=== PATIENT | female | born 1990 | race Caucasian/White ===

== ENCOUNTER 2021-11-08 04:44 | Day surgery (SDC) | payer OTHER ==
[2021-11-04 10:36] VITALS: BMI 28.3
[2021-11-08] MEDS ORDERED: BUPIVACAINE HCL/PF 0.5% (5MG/ML) 10 ML VIAL ONE (13:53)
[2021-11-08] MEDS ORDERED: ROCURONIUM BROMIDE 50 MG/5 ML SYRINGE ONE (14:07)
[2021-11-08] MEDS ORDERED: DEXAMETHASONE SOD PHOSPHATE 4 MG/1 ML VIAL ONE (14:07)
[2021-11-08] MEDS ORDERED: MIDAZOLAM HCL 2 MG/2 ML SINGLE DOSE VIAL ONE (14:07)
[2021-11-08] MEDS ORDERED: PROPOFOL 20 ML ONE (14:07)
[2021-11-08] MEDS ORDERED: LIDOCAINE HCL/PF 2% SDV 5ML VIAL ONE (14:07)
[2021-11-08] MEDS ORDERED: BUPIVACAINE HCL/PF 0.5% (5MG/ML) 10 ML VIAL IJ ONE ×2 (14:31)
[2021-11-08] MEDS ORDERED: KETOROLAC TROMETHAMINE 30 MG/1 ML VIAL ONE (15:00)
[2021-11-08] MEDS ORDERED: GLYCOPYRROLATE 0.2 MG/1 ML VIAL ONE (15:00)
[2021-11-08] MEDS ORDERED: NEOSTIGMINE METHYLSULFATE 0.5 MG/ML - 10 ML MDV ONE (15:00)
[2021-11-08] MEDS ORDERED: ONDANSETRON 4 MG/2 ML VIAL IVPUSH PRN (15:50)
[2021-11-08] MEDS ORDERED: oxyCODONE HCL 5 MG TABLET PO PRN ×2 (15:50)
[2021-11-08] MEDS ORDERED: LACTATED RINGERS SOLUTION 1,000 ML IV SCH (16:00)
[2021-11-08 18:54] VITALS: BP 111/75; PULSE 87; TEMP 97.7
== END 2021-11-08 18:30 | disposition home or self-care (01) ==
LOC: JASU-SURG 04:44
PROVIDERS: ATTEND Student in an Organized Health Care Education/Training Program
PROC: 0UT74ZZ Resection of Bilateral Fallopian Tubes, Percutaneous Endoscopic Approach (ICD-10-PCS; principal; 2021-11-08 13:30)
DX: Z30.2 Encounter for sterilization (principal)
CPT/HCPCS: 81025; 88302-TC; 94760